=== PATIENT | female | born 1955 | race Caucasian/White ===

== ENCOUNTER → 2021-09-09 08:42 | Outpatient (CLI) | payer BC, MEDICARE, SELFPAY ==
[2021-09-09 11:26] LABS: Coronavirus 19 IgG Antibody Positive (Negative); Coronavirus 19 IgM Antibody Negative (Negative)
== END ==
PROVIDERS: PCP Family Medicine; Visit Provider Family Medicine
DX: Z01.84 Encounter for antibody response examination (principal)
CPT/HCPCS: 36415; 86328

== ENCOUNTER → 2022-01-27 09:08 | Outpatient (CLI) | payer BC, MEDICARE, SELFPAY ==
--- NOTE | 2022-01-27 09:12 | US_ITS ---
FINAL REPORT TECHNIQUE: Sonographic images of the right upper quadrant were obtained. CLINICAL HISTORY: abd pain FINDINGS: The liver is homogeneous. There is no focal hepatic lesion or intrahepatic biliary dilatation. The gallbladder is well filled. There are gallstones. There is no pericholecystic fluid collection or gallbladder wall thickening. The common duct measures 2 mm which is within normal limits. The pancreatic tail is partially obscured by bowel gas. Otherwise, it has a normal appearance. The right kidney measures 8.2 cm in [id number] length. There is no hydronephrosis, mass, or stone. There is no right upper quadrant ascites. IMPRESSION: Cholelithiasis. Reviewed, Interpreted and Dictated by Georgie Brandon MD Transcribed by James Luna Authenticated by Georgie Brandon MD on 01/27/2022 02:51:28 PM [facility]
== END ==
PROVIDERS: PCP Family Medicine; Visit Provider Family Medicine
DX: R10.11 Right upper quadrant pain (principal)
CPT/HCPCS: 76705

== ENCOUNTER 2022-03-30 09:09 | Emergency (ER) | payer BC, MEDICARE, SELFPAY ==
[2022-03-30 09:42] VITALS: BP 121/81; PULSE 102; RESP 16; TEMP 37.2; O2SAT 100; BMI 31.1
--- NOTE | 2022-03-30 09:50 | XR_ITS ---
FINAL REPORT CLINICAL HISTORY: cough, congestion FINDINGS: PA and lateral views of the chest are obtained. There is no prior exam for comparison. The cardiac and mediastinal silhouettes are within normal limits. The lungs are clear. There is no pleural effusion, pneumothorax, or acute osseous abnormality. IMPRESSION: No radiographic evidence of acute cardiac or pulmonary disease. Reviewed, Interpreted and Dictated by Georgie Brandon MD Transcribed by Alanna Schulz Authenticated and [facility]
--- NOTE | 2022-03-30 09:54 | HMH.EDUTC ---
[facility] Disposition Clinical Impression: Viral syndrome, Bronchitis Sinusitis Qualifiers: Sinusitis location: unspecified location Chronicity: acute Recurrence: non-recurrent Qualified Code(s): J01.90 - Acute sinusitis, unspecified Disposition: Home, Self-Care Condition on Discharge: Good Instructions: DI for Sinusitis, DI for Acute Bronchitis, DI for COVID-19 (Suspected or Confirmed ), Preventing the Spread of Coronavirus Discharge Instructions Additional Instructions: Drink plenty of fluids. Take tylenol or ibuprofen for pain or fever. Take the medications as directed. Follow up with your regular doctor. GO TO THE ER FOR ANY WORSENING SYMPTOMS Quarantine until you know the results of your covid-19 test. Notify your school or workplace of your results and follow their instructions regarding return to work/school. Prescriptions: Ondansetron [Zofran 4mg ODT] 4 mg PO Q8HP PRN #20 tab PRN Reason: Nausea Transmission Status: Received by [facility] Amoxicillin [Amoxicillin 875MG Tab] 875 mg PO Q12H #20 tab Transmission Status: Received by [facility] Referrals: Mir Cisse MD [Primary Care Provider] - Time of Disposition: 10:23 Medical Decision Making - Medical Records Medical records reviewed: No: I reviewed the patient's medical records. - Tramaine Inquiry Pt receiving controlled substance: No Vital Signs: 03/30/22 09:42 03/30/22 10:31 Temperature 99.0 F 99.0 F Temperature Source Oral Pulse Rate 102 H Pulse Rate [Left] 102 H Respiratory Rate 16 16 Blood Pressure 121/81 Blood Pressure [Right Arm] 121/81 Blood Pressure Mean [Right Arm] 94 02 Sat by Pulse Oximetry 100 - Lab Data Lab results reviewed: Yes: I reviewed the patient's lab results. [facility] HPI - General Stated complaint: ZAFAR, sore throat, ear pain, cough, fever Time Seen by Provider: 03/30/22 09:54 Mode of Arrival: Ambulatory Source of Information: Patient Limitations: No Limitations Description of Symptoms (Recalled from Triage Doc. by RN): patient comes in for coughing, bilateral ear pain, and headache. symptoms began tuesday HEENT Symptoms (Recalled from RN notes): Yes Resp Symptoms (Recalled from RN notes): Yes Skin Symptoms (Recalled from RN notes): No MS Symptoms (Recalled from RN notes): No Functional Status (Recalled from RN notes): n/a - History of Present Illness Provider Complaint: She states that she has had chest congestion, sinus congestion, scratchy sore throat, chills, low grade fever and body aches for the past 1 day. She has not been vaccinated against covid-19. - Related Data Previous Rx's Medication Instructions Recorded Amoxicillin [Amoxicillin 875MG 875 mg PO Q12H #20 tab 03/30/22 Tab] Ondansetron [Zofran 4mg ODT] 4 mg PO Q8HP PRN #20 tab 03/30/22 Allergies Allergy/AdvReac Type Severity Reaction Status Date / Time Sulfa (Sulfonamide Allergy Verified 03/30/22 09:45 Antibiotics) - Worker's Comp Is this a Worker's Comp case?: No [facility] History - Hepatitis A Screen Attestation statement:: This patient has been screened for Hepatitis A risk factors. I have reviewed the patient's past medical history: Yes ROS Obtained: Yes All systems reviewed & no additional complaints - Constitutional Constitutional: Reports as per HPI - Eyes Eyes: Denies eye discharge - ENT Ears, Nose, Mouth, and Throat: Reports as per HPI - Cardiovascular Cardiovascular: Denies chest pain - Respiratory Respiratory: Reports chest congestion, Reports cough Physical Exam - General General appearance: alert, in no apparent distress - Head Head exam: atraumatic, normocephalic, normal inspection - Eye Eye exam: Present: normal appearance, PERRL, EOMI - ENT ENT exam: Present: normal exam, normal oropharynx, mucous membranes moist, TM's normal bilaterally, normal external ear exam - Neck Neck exam: Present: normal i
[2022-03-30 10:31] VITALS: BP 121/81; PULSE 102; RESP 16; TEMP 37.2
== END 2022-03-30 10:32 | disposition home or self-care (01) ==
PROVIDERS: Emergency Provider Nurse Practitioner Family; PCP Family Medicine
DX: U07.1 COVID-19 (principal); J01.90 Acute sinusitis, unspecified; B34.9 Viral infection, unspecified; H92.03 Otalgia, bilateral; J40 Bronchitis, not specified as acute or chronic; Z28.310 Unvaccinated for COVID-19; Z88.2 Allergy status to sulfonamides
CPT/HCPCS: 71046; 99213; C9803; G0463; U0003; U0005

== ENCOUNTER → 2022-07-15 13:44 | Outpatient (CLI) | payer BC, MEDICARE, SELFPAY ==
[2022-07-15 18:30] LABS: Adenovirus,PCR Not Detected (NotDetected); Bordetella Pertussis Not Detected (NotDetected); Chlamydophila Pneumoniae, PCR Not Detected (NotDetected); Coronavirus 19, PCR Not Detected (NotDetected); Coronavirus 229E Not Detected (NotDetected); Coronavirus NL63 Not Detected (NotDetected); Coronavirus OC43 Not Detected (NotDetected); Coronovirus HKU1,PCR Not Detected (NotDetected); Human Metapneumovirus Not Detected (NotDetected); Influenza A, PCR Not Detected (NotDetected); Influenza AH1, 2009 Not Detected (NotDetected); Influenza AH1, PCR Not Detected (NotDetected); Influenza AH3,PCR Not Detected (NotDetected); Influenza B, PCR Not Detected (NotDetected); Mycoplasma Pneumoniae, PCR Not Detected (NotDetected); Parainfluenza 1, PCR Not Detected (NotDetected); Parainfluenza 2, PCR Not Detected (NotDetected); Parainfluenza 3, PCR Not Detected (NotDetected); Parainfluenza 4, PCR Not Detected (NotDetected); Respiratory Syncytial Virus Not Detected (NotDetected); Rhinovirus/Enterovirus Not Detected (NotDetected)
[2022-07-15 18:34] LABS: Basophils # 0.1 K/mm3 (0-0.2); Basophils % 1.5 % (0.1-2.0); Eosinophils # 0.3 K/mm3 (0.0-0.4); Eosinophils % 5.6 % (0.1-12.0); Hematocrit 42.3 % (37.0-47.0); Hemoglobin 13.4 g/dL (12.2-16.2); Lymphocytes % 33.2 % (10-50); Mean Corpuscular HGB Conc 31.7 g/dL (31.8-35.4); Mean Corpuscular Hemoglobin 28.4 pg (27.0-31.2); Mean Corpuscular Volume 89.8 fl (81-99); Mean Platelet Volume 9.9 fl (7.4-10.4); Monocytes # 0.3 K/mm3 (0.1-1.0); Monocytes % 5.7 % (1.7-9.3); Neutrophils # 3.2 K/mm3 (1.8-7.8); Neutrophils % 54.1 % (37.0-80.0); Platelet Count 345 K/mm3 (142-424); Red Blood Count 4.72 M/mm3 (4.20-5.40); Red Cell Distribution Width 13.8 % (11.5-17.5); White Blood Count 5.9 K/mm3 (4.8-10.8)
== END ==
PROVIDERS: PCP Nurse Practitioner; Visit Provider Nurse Practitioner
DX: J01.00 Acute maxillary sinusitis, unspecified (principal); J01.90 Acute sinusitis, unspecified
CPT/HCPCS: 85025; 87581; 87632; 87798; C9803; U0003; U0005